=== PATIENT | male | born 1960 | race African-American/Black ===

== ENCOUNTER 2024-01-02 07:49 | Day surgery (SDC) | payer BC ==
[2023-12-31 15:51] VITALS: BMI 22.9
[2024-01-02 09:49] VITALS: RESP 16; TEMP 97.5
[2024-01-02 09:50] VITALS: BP 110/68; PULSE 98
== END 2024-01-02 10:32 | disposition home or self-care (01) ==
LOC: FASU-ENDO 07:49
PROVIDERS: ATTEND Internal Medicine Gastroenterology
PROC: 0DJD8ZZ Inspection of Lower Intestinal Tract, Via Natural or Artificial Opening Endoscopic (ICD-10-PCS; principal; 2024-01-02 09:15)
DX: Z12.11 Encounter for screening for malignant neoplasm of colon (principal)
CPT/HCPCS: 82962